=== PATIENT | male | born 1995 | race Caucasian/White ===

== ENCOUNTER 2017-02-15 02:58 | Emergency (ER) | payer BC ==
[2017-02-15 03:02] VITALS: BP 139/75; PULSE 116; RESP 18; TEMP 101.9
[2017-02-15] MEDS ORDERED: ACETAMINOPHEN TAB 500 MG TAB PO STA (03:17)
[2017-02-15] MEDS ORDERED: IBUPROFEN 600 MG STARTER PACK 4 TAB BTL PO STA (03:17)
--- NOTE | 2017-02-15 03:21 | ED ---
ENT HPI - General Chief complaint: ENT Stated complaint: ENT Time Seen by Provider: 02/15/17 03:10 Source: patient, RN notes reviewed Mode of arrival: ambulatory Limitations: no limitations - History of Present Illness Initial comments: 22-year-old male presents to the emergency room chief complaint of sore throat and fever times one week. Patient was seen at her doctor's office today and they started on him on antibiotics. Patient states he has not been taking Motrin Tylenol and he is having terrible throat pain and irritation. Patient states pain with swallowing. Patient denies a cough. Patient states he just does not feel very well. Last Tylenol was around noon today. Patient denies any recent shortness of breath, chest pain, back pain, abdominal pain, nausea vomiting, numbness or tingling, dysuria or hematuria, constipation or diarrhea, headaches or visual changes, or any other current symptoms. - Related Data Home Medications Medication Instructions Recorded Confirmed Amoxicillin 500 mg PO Q12HR 02/15/17 02/15/17 Previous Rx's Medication Instructions Recorded Ibuprofen [Motrin] 600 mg PO Q6HR PRN #20 tab 02/15/17 Allergies Allergy/AdvReac Type Severity Reaction Status Date / Time No Known Allergies Allergy Verified 02/15/17 03:03 Review of Systems ROS Statement: Those systems with pertinent positive or pertinent negative responses have been documented in the HPI. ROS Other: All systems not noted in ROS Statement are negative. Past Medical History Past Medical History: No Reported History History of Any Multi-Drug Resistant Organisms: None Reported Past Surgical History: No Surgical Hx Reported Past Psychological History: No Psychological Hx Reported Smoking Status: Former smoker Past Alcohol Use History: Rare Past Drug Use History: None Reported General Exam - General Exam Comments Initial Comments: General exam: Alert, active, comfortable in no apparent distress Head: Normocephalic Eyes: Normal reaction of pupils, equal size, normal range of extraocular motion Ears: normal external ear canals, pink tympanic membranes with normal cone of light Nose: clear with pink turbinates Throat: Erythema with exudates with enlarged tonsils Neck: no masses, no nuchal rigidity Chest: no chest wall deformity Lungs: equal air entry with no crackles or wheeze CVS: S1 and S2 normal with no audible mumurs, regular rhythm Abdomen: no hepatosplenomegaly, normal bowel sounds, no guarding or rigidity Spine: no scoliosis or deformity Skin: no rashes Neurological: No focal deficits, tone is normal in all 4 extremities Limitations: no limitations Course Vital Signs 02/15/17 03:00 Temperature 101.9 F H Pulse Rate 116 H Respiratory 18 Rate Blood Pressure 139/75 O2 Sat by Pulse 97 Oximetry Medical Decision Making - Medical Decision Making 22-year-old male presents for pharyngitis. This time his area amoxicillin. We discussed these continue Motrin and Tylenol for fever control. We discussed return parameters and follow-up all patient's questions. He stated he understood and is in agreement with this plan. This time he will be discharged home. Disposition Clinical Impression: Acute pharyngitis Disposition: HOME SELF-CARE Condition: Stable Instructions: Pharyngitis (ED), Fever in Children (ED) Additional Instructions: Please use medication as discussed. Please follow up with family doctor if symptoms have not improved over the next two days. Please return to the emergency room if your symptoms increase or worsen or for any other concerns. Tylenol/acetaminophen every 4 hours. Motrin/ibuprofen every 6 hours Prescriptions: Ibuprofen [Motrin] 600 mg PO Q6HR PRN #20 tab PRN Reason: Pain Referrals: Chinmay Singleton DO [Primary Care Provider] - 1-2 days Time of Disposition: 03:21
== END 2017-02-15 03:44 | disposition home or self-care (01) ==
LOC: EC 02:58
DX: J02.9 Acute pharyngitis, unspecified (principal); Z87.891 Personal history of nicotine dependence
CPT/HCPCS: 99283